=== PATIENT | female | born 1975 | race Hispanic/Latino ===

== ENCOUNTER 2021-07-17 10:47 | Emergency (ER) | payer MEDICAID, SELFPAY ==
[2021-07-17 10:50] VITALS: BP 142/86; PULSE 102; RESP 16; TEMP 36.1; O2SAT 96; BMI 33.3
--- NOTE | 2021-07-17 11:23 | ED.RN ---
PT SISTER TO DR RODRIGUEZ STATES SHE HAS MANY COMPLAINTS AND CONDITIONS AND I NEED TO KNOW HOW TO TAKE CARE OF HER.PT SISTER DOES NOT KNOW ANY OF PATIENTS CONDITIONS OR MEDICATIONS. FAMILY HAS NO PILL BOTTLES WITH THEM NOR DO THEY KNOW ANY OF THE MEDICATIONS PT IS SUPPOSSED TO BE ON. ATTEMPTING TO CONTACT PT PHYSICIAN SHE LISTS IN [facility]
[2021-07-17 12:00] VITALS: PULSE 68; RESP 18; O2SAT 99
[2021-07-17 12:41] LABS: Bedside Glucose 152 mg/dL (74-106)
[2021-07-17 13:00] VITALS: PULSE 60; RESP 18; O2SAT 99
--- NOTE | 2021-07-17 13:10 | ED.RN ---
THIS RN HAS MADE MULTIPLE PHONE CALLS IN AN ATTEMPT TO OBTAIN CURRENT MED LIST FOR PT. HAVE ATTEMPTED X 2 WITH [employer] TO OBTAIN PERTINENT INFORMATION. PT CALM AND COOPERATIVE. BHARGAV SOCIAL WORK ATTEMPTING TO CONTACT PHARMACY IN REGARDS TO REMAINDER MEDICATIONS. PT IS DIABETIC. STATES TAKES OZEMPIC. LAST TAKEN ON JULY 08. TAKES 1 X WEEKLY
--- NOTE | 2021-07-17 13:29 | CM.ED ---
Social Work Consult: Resources Referral source: Dr. Yancey This social service coordinator met with patient and patient sister, Ladan in room. Introduced self and social service coordinator role. Patient agreeable to speak with this social service coordinator and provided permission for this social service coordinator to speak openly with Ladan present. Patient recently moved to the area from [place]. Loriz reports that patient was homeless in [place], [place] and was not caring for self. Loriz went to get patient and patient is now living with Ladan. Loriz reports to not know any of patient medical history. Patient also reports to not be aware of medical history. Per medication list that nursing was able to receive patient appears to have been following with a free clinic in [place], [place] ([facility]). Patient confirms to have been following with [facility]. Patient agreeable to signing a release of information for this social service coordinator to be able to attempt to obtain patient medical history. Patient does report to have mental health history significant for Bi-polar and Schizophrenia. Patient denies current suicidal thoughts, plans, intents. Patient denies self harming behavior. Patient states to just need medication set up. This social service coordinator educting patient and Loriz that patient appears to have Medicaid through [place] and patient Medicaid will need to be switched to [place] before coverage will be able to be obtained in [place]. Ladan voiced understanding and has plan to go to [facility] with patient to get insurance established. This social service coordinator provided patient and Ladan with [facility] Card, Information on [facility] [employer] [facility], [place] Medicaid number, [facility], Local counseling services, crisis hotline number, and prescription assistance options. Loriz and patient thanked this social service coordinator and deny any questions. This social service coordinator recommending for patient to follow up with [facility] to have care started until insurance is obtained in [place]. Active support and listening provided. Patient denies issues with comprehension or understanding. Patient primary language is Irish but reports to be able to speak Czech as well as read Czech. Updated medical team on above. PLAN: Discharge to the community. Fran HESS, BLANCA
--- NOTE | 2021-07-17 13:55 | EDS_ITS ---
HPI History of Present Illness Chief Complaint: Mental Health Detail of Chief Complaint: Medication refill Narrative Narrative: Patient is brought to the emergency room by her sister. Patient lives in an [facility] until recently. Sister states that she was not going out taking care of herself so sister drove there and picked her up and bring her back to [place] to live with her. They did not bring any of her medications with her. Sister states I know she has many medical problems but do not know what they are and I need to know how to take care of her. PFSH PFS Medical History Bipolar 1 disorder, depressed, severe Diabetes Schizo-affective schizophrenia, chronic condition Home Medications chlorthalidone 12.5 mg PO DAILY #7 tab 07/17/21 [Rx Last Taken Unknown] chlorthalidone 25 mg PO DAILY 07/17/21 [History Last Taken Unknown] methocarbamol 750 mg PO Q8H #30 tab 07/17/21 [Rx Last Taken Unknown] methocarbamol 750 mg PO TID 07/17/21 [History Last Taken Unknown] omeprazole 40 mg PO DAILY 07/17/21 [History Last Taken Unknown] omeprazole 40 mg PO DAILY #10 cap 07/17/21 [Rx Last Taken Unknown] semaglutide [Ozempic] 0.25 mg SUBCUT QWEEK 07/17/21 [History Last Taken Unknown] semaglutide [Ozempic] 0.5 mg SUBCUT QWEEK 14 Days #0.8 ml 07/17/21 [Rx Last T aken Unknown] Allergy/AdvReac Type Severity Reaction Status Date / Time bupropion [From Wellbutrin] AdvReac Other Verified 07/17/21 10:50 gabapentin AdvReac Other Verified 07/17/21 10:50 lithium AdvReac Rash Verified 07/17/21 10:50 Social History Smoking Status: Never smoker ROS ROS ED ROS Narrative Limited review of systems obtained through sister secondary to language deficit. Constitutional Constitutional ED: Denies chills or fever(s) Eyes Eyes: Denies change in vision Cardiovascular Cardiovascular: Denies chest pain Respiratory/Chest Respiratory/Chest: Denies cough or dyspnea Gastrointestinal Gastrointestinal: Denies diarrhea or vomiting Musculoskeletal Musculoskeletal: Denies back pain Integumentary Denies rash Psychiatric Psychiatric: Denies suicidal ideation or suicidal thoughts EXAM Physical Exam Const Vital Signs: 07/17/21 10:50 07/17/21 12:00 07/17/21 13:00 Temperature 96.9 F L Temperature Source Temporal Pulse Rate 102 H 68 60 Respiratory Rate 16 18 18 Blood Pressure 142/86 H Blood Pressure Mean 104 Pulse Ox 96 99 99 Oxygen Delivery Method Room Air Room Air Room Air Positive well nourished and well developed General Appearance ED: well developed HEENT Reports moist mucous membranes Eyes PERRL and EOMs intact bilaterally Neck supple Chest Wall inspection of chest normal and palpation of chest normal Resp normal respiratory effort and clear to auscultation bilaterally Cardio regular rate and regular rhythm GI non-tender Palpation: soft Neuro Sensorium / Orientation: alert Psych mental status grossly normal Skin no rashes or lesions noted MDM MDM MDM Narrative Medical decision making narrative: Patient initially advised that she saw a Dr. Collier in [facility]. I was able to find this physician however he was listed as a painter hand. We called the office but they had no record of this patient. She then advised us that her medical provider was Ana Ortez and that she was supposed to be on 3 different psychiatric medicines, Invega, Lamictal, and Vistaril. She was able to tell us that she had previously gotten her prescriptions at [facility]. We called the pharmacy and they were able to fax a list of her current medications. They advised that she had never been given Lamictal or Invega from the pharmacy. Her last prescription for Vistaril was from January of last year. It does appear the patient is currently on chlorthalidone, Ozempic, omeprazole, methocarbamol. Lab Data Labs: Laboratory Results - last 24 hr 07/17/21 12:37 POC Glucose 152 H Treatment and Re-Evaluation Narrative: In light of the fact that the patient is a diabetic, BGT was obtained. It is 152. She is supposed to take Ozempic shots every Thursday. Her last shot was approximately 10 days ago. Social work worked with patient and sister to provide information for switching the patient's insurance for [place] coverage and recommended close follow-up with [facility]. A prescription for a week or so medication is written by myself until he can get in to be seen. Discharge Plan Triage Chief Complaint: Mental Health ED Provider: Osiris Yancey Dx/Rx/DC Orders Clinical Impression: Medication refill Prescriptions: New chlorthalidone 25 mg tablet 12.5 mg PO DAILY Qty: 7 RF: 0 Ozempic 0.25 mg or 0.5 mg(2 mg/1.5 mL) pen injector 0.5 mg subcut QWEEK 14 Days Qty: 0.8 RF: 0 omeprazole 40 mg capsule,delayed release(DR/EC) 40 mg PO DAILY Qty: 10 RF: 0 methocarbamol 750 mg tablet 750 mg PO Q8H Qty: 30 RF: 0 No Action chlorthalidone 25 mg Tablet 25 mg PO DAILY RF: 0 omeprazole 40 mg Capsule,Delayed Release(Dr/Ec) 40 mg PO DAILY RF: 0 methocarbamol 750 mg Tablet 750 mg PO TID RF: 0 Ozempic 0.25 mg or 0.5 mg(2 mg/1.5 mL) Pen Injector 0.25 mg SUBCUT QWEEK RF: 0 Primary Care Provider: Care Physician,No Primary Referrals: Blaire Valdes [NON-STAFF] - As soon as possible Care Physician,No Primary [Primary Care Provider] - Disposition Disposition: Home, Self Care
[2021-07-17 14:00] VITALS: PULSE 74; RESP 18; O2SAT 99
[2021-07-17 14:23] VITALS: RESP 16; O2SAT 99
== END 2021-07-17 14:24 | disposition home or self-care (01) ==
PROVIDERS: Emergency Provider Emergency Medicine; Visit Provider Emergency Medicine
DX: Z76.0 Encounter for issue of repeat prescription (principal); E11.9 Type 2 diabetes mellitus without complications
CPT/HCPCS: 82962; 99282

== ENCOUNTER → 2021-11-14 | Outpatient (CLI) | payer MEDICAID, SELFPAY ==
[2021-11-14 08:53] LABS: Absolute Lymphocyte Count 2.02 X10^3/uL (0.83-4.51); Absolute Neutrophil Count 3.2 X10^3/uL (2.0-7.7); Basophil# 0.05 X10^3/uL; Basophil% 0.9 % (0-1); Eosinophil# 0.05 X10^3/uL; Eosinophils% 0.9 % (0-5); Hematocrit 41.8 % (37-47); Hemoglobin 13.4 g/dL (12.0-15.0); Lymphocyte # 2.02 X10^3/ul (0.83-4.51); Lymphocyte % 34.9 % (19-41); Mean Corp Hgb Conc 32.1 g/dL (32-36); Mean Corpuscular Hgb 29.7 pg (27.0-32.0); Mean Corpuscular Volume 92.7 fL (81-99); Mean Platelet Vol. 10.1 fl (6.2-12.0); Monocyte# 0.43 X10^3/uL; Monocyte% 7.4 % (0-10); NRBC Flagged by Analyzer 0 % (0-5); Neutrophil # 3.23 X10^3/uL (2.7-7.7); Neutrophil % 55.7 % (47-70); Platelet Count 294 K/mm3 (150-450); RBC Distribution Width CV 12.5 % (11.6-14.6); RBC Distribution Width SD 42.7 fl (35.1-43.9); Red Blood Count 4.51 M/mm3 (4.2-5.4); White Blood Count 5.8 K/mm3 (4.4-11.0)
[2021-11-14 09:24] LABS: Hemoglobin A1c 6.7 % (3.8-5.6)
[2021-11-14 09:26] LABS: Vitamin D,25 Hydroxy 32.9 ng/mL
[2021-11-14 09:38] LABS: ALB/GLOB Ratio 0.9 RATIO (0.9-2.4); AST(SGOT) 14 U/L (15-37); Alanine Aminotransfer ALT/SGPT 25 U/L (13-56); Albumin, Serum 3.2 g/dL (3.2-5.0); Alkaline Phosphatase 103 U/L (45-117); Anion Gap 6 (5-15); BUN 12 mg/dL (7-18); BUN/Creat Ratio 15.2 RATIO (10-20); Calcium,Total 8.9 mg/dL (8.5-10.1); Chloride 105 mmol/L (98-107); Cholesterol 192 mg/dL (200); Creatinine, Serum 0.79 mg/dL (0.55-1.02); EST Glomerular Filtration Rate 84 mL/min (>60); Est Glom Filt Rate - Afr Amer 101 mL/min (>60); Globulin 3.7 g/dL (2.2-4.2); Glucose 154 mg/dL (74-106); High Density Lipoprotein 74 mg/dL; Potassium 4.1 mmol/L (3.5-5.1); Protein, Total 6.9 g/dL (6.4-8.2); Sodium Level 141 mmol/L (136-145); Thyroid Stim Hormone (TSH) 1.09 uIU/mL (0.358-3.74); Triglycerides 96 mg/dL; Very Low Density Lipoprotein 19 mg/dL (5-40)
== END | disposition home or self-care (01) ==
LOC: LAB 08:15
DX: E11.9 Type 2 diabetes mellitus without complications (principal); E55.9 Vitamin D deficiency, unspecified
CPT/HCPCS: 36415; 80053; 80061; 82306; 83036; 84443; 85025